=== PATIENT | male | born 1980 | race Caucasian/White ===

== ENCOUNTER 2017-07-21 10:47 | Emergency (ER) | payer OTHER, BC ==
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
[2017-07-21 13:50] VITALS: BP 149/88
== END 2017-07-21 13:50 | disposition home or self-care (01) ==
LOC: ER 10:47
DX: M54.5 Low back pain (principal); M54.2 Cervicalgia; V49.40XA Driver injured in collision with unspecified motor vehicles in traffic accident, initial encounter
CPT/HCPCS: 72050; 72110; 99284